=== PATIENT | male | born 1955 | race Caucasian/White ===

== ENCOUNTER 2017-07-04 07:50 | Day surgery (SDC) | payer BC ==
[2017-07-04] MEDS ORDERED: PROPOFOL 500 MG/50 ML EMU IV ONE (08:51)
[2017-07-04 10:11] VITALS: PULSE 49; RESP 20; TEMP 97.2; O2SAT 99
[2017-07-04 10:15] VITALS: BP 135/83
== END 2017-07-04 10:20 | disposition home or self-care (01) ==
LOC: SURG 07:50
PROVIDERS: ATTEND Surgery
DX: Z12.11 Encounter for screening for malignant neoplasm of colon (principal)
CPT/HCPCS: 45378; J2704